=== PATIENT | male | born 1990 | race Caucasian/White ===

== ENCOUNTER 2023-01-31 14:48 | Emergency (ER) | payer MEDICARE, MEDICAID, SELFPAY ==
[2023-01-31] VITALS (9 sets, daily range): BP systolic 99–131; BP diastolic 54–70; PULSE 60–95; RESP 12–28; TEMP 36.8; O2SAT 95–98; BMI 29.0
--- NOTE | 2023-01-31 14:56 | DI.RAD.S_ITS ---
PROCEDURE: XR CHEST 1V INDICATIONS: weakness, hyperglycemia TECHNIQUE: One view of the chest was acquired. COMPARISON: None. FINDINGS: Surgical changes and devices: None. Lungs and pleura: Lungs are clear. No pleural effusions or pneumothorax. Mediastinum: Mediastinal contours appear normal. Heart size is normal. Bones and chest wall: No suspicious bony lesions. Overlying soft tissues appear unremarkable. IMPRESSION: No acute cardiopulmonary disease process. Dictated by: Jailene Michaud MD, PhD on 01/31/2023 at 15:39 Approved by: Jailene Michaud MD, PhD on 01/31/2023 at 15:40
--- NOTE | 2023-01-31 15:05 | ED_ITS ---
HPI - Seizure General Chief Complaint: Seizure Stated Complaint: Slurred speech, Seizures Time Seen by Provider: 01/31/23 14:55 History of Present Illness HPI Narrative: 32-year-old male nonsmoker with history of diabetes and seizures presents at the request of the clinic in [place] for evaluation of a change in his seizure habits as well as high blood sugars. He states that he has been having upwards of 3 seizures per day for the past few weeks which is more than normal for him. He denies any new seizure medications but does state that he occasionally misses what he is supposed to take. Additionally he has had blood sugars as high as the 600s for least the past few days and has been slurring his words. He has had some change in his diabetic regimen but is unsure exactly what the change was. He denies any headache or blurred vision. Denies chest pain or shortness of breath. He has nausea but denies any vomiting. Denies any abdominal pain, constipation or diarrhea Related Data Allergies Allergy/AdvReac Type Severity Reaction Status Date / Time lavender (Lavandula Allergy Unknown Verified 01/31/23 15:09 angustifolia) ALL LOTIONS Allergy Unknown Uncoded 11/06/17 12:34 Review of Systems Review of Systems Narrative: GENERAL: See HPI HEENT: Denies sinus pain, ear pain, sore throat, difficulty swallowing, dizziness. RESPIRATORY: Denies dyspnea, cough, wheezing, hemoptysis, sputum. CARDIOVASCULAR: Denies chest pain, palpitations, orthopnea, edema, GASTROINTESTINAL: See HPI : Denies dysuria, frequency, incontinence, hematuria, urinary retention. MUSCULOSKELETAL: denies weakness, joint pain, or bony pain SKIN: Denies rash, skin lesions, or other NEUROLOGIC: See HPI PSYCHIATRIC: No concerning psychosocial issues. 12 point review of systems is negative except for those stated above Patient History Social History Smoking Status: Current some day smoker Exam Narrative Exam Narrative: GENERAL: [32] year old patient appears stated age. Well-developed patient, in mild distress. GCS 15 HEAD: Atraumatic. Normocephalic. EYES: Pupils equal round and reactive. Extraocular motions intact. No scleral icterus. No injection or drainage. ENT: Nose without bleeding, purulent drainage. Throat without erythema, tonsillar hypertrophy or exudate. Airway patent. NECK: Trachea midline. Non tender CARDIOVASCULAR: Regular rate and rhythm without murmurs, gallops, or rubs. RESPIRATORY: Clear to auscultation. Breath sounds equal bilaterally. No wheezes, rales, or rhonchi. GASTROINTESTINAL: Abdomen soft, non-tender, nondistended. EXTREMITIES: No edema or joint tenderness. BACK: Nontender without deformity or crepitance. No flank tenderness. NEURO: AOx3. SKIN: No rash or erythema of visible areas Initial Vital Signs Initial Vital Signs: Vital Signs Pulse Rate 95 H 01/31/23 14:59 Respiratory Rate 18 01/31/23 14:59 Pulse Oximetry 95 01/31/23 14:59 Course Orders Ordered: ED Orders 01/31/23 14:55 VBG [Venous Blood Gas] Stat 01/31/23 14:56 Chest [XR chest 1V] Stat 01/31/23 15:16 Complete Blood Count AUTO DIFF Stat Comprehensive Metabolic Panel Stat Ketones (Beta-Hydroxybutyrate) Stat Magnesium Stat 01/31/23 15:40 CT head/brain wo con Stat Discontinued Medications Lactated Ringer's (Lactated Ringers) 1,000 mls @ 1,000 mls/hr IV BOLUS ONE Stop: 01/31/23 15:54 Last Infusion: 01/31/23 17:00 Dose: 0 mls/hr Documented By: Admin: 01/31/23 15:34 Dose: 1,000 mls/hr Documented By: ROMAN Ondansetron HCl (Ondansetron 4 Mg/2 Ml Inj) 4 mg IV NOW ONE Stop: 01/31/23 14:56 Last Admin: 01/31/23 15:34 Dose: 4 mg Documented By: ROMAN Vital Signs Vital signs: Vital Signs - 8 hr 01/31/23 15:00 01/31/23 14:59 01/31/23 15:00 Temperature 98.2 F Pulse Rate 92 H 95 H 91 H Respiratory Rate 12 18 23 Blood Pressure 121/68 Pulse Oximetry 96 95 96 Oxygen Delivery Method Room Air Room Air 01/31/23 15:01 01/31/23 15:01 01/31/23 15:30 Temperature Pulse Rate 91 H Respiratory Rate 23 Blood Pressure 117/70 121/69 Pulse Oximetry 96 Oxygen Delivery Method 01/31/23 15:30 01/31/23 16:00 01/31/23 16:00 Temperature Pulse Rate 80 75 Respiratory Rate 28 H 22 Blood Pressure 116/62 Pulse Oximetry 96 Oxygen Delivery Method Room Air 01/31/23 16:30 01/31/23 16:30 01/31/23 17:00 Temperature Pulse Rate 65 Respiratory Rate 19 Blood Pressure 99/54 L 103/56 L Pulse Oximetry 98 Oxygen Delivery Method Room Air 01/31/23 17:00 01/31/23 17:39 01/31/23 18:00 Temperature Pulse Rate 75 66 Respiratory Rate 15 27 H Blood Pressure 131/70 Pulse Oximetry 97 98 Oxygen Delivery Method Room Air Room Air 01/31/23 18:00 Temperature Pulse Rate 60 Respiratory Rate 19 Blood Pressure Pulse Oximetry 97 Oxygen Delivery Method MDM - Seizure Lab Data 01/31/23 15:16 01/31/23 15:16 Labs: Lab Results 01/31/23 01/31/23 01/31/23 Range/Units 15:16 15:16 15:16 WBC 11.7 H (4.5-11.0) X10^3/uL RBC 4.91 (4.5-5.9) X10^6/uL Hgb 14.9 (13.5-17.5) g/dL Hct 41.6 (41-53) % MCV 84.8 (80-100) fL MCH 30.4 (26-34) PG MCHC 35.8 (30-36) % RDW 13.2 (11.6-14.8) % Plt Count 257 (150-400) X10^3/uL Neut % (Auto) 63.1 (50-75) % Lymph % (Auto) 29.8 (25-40) % [place] % (Auto) 5.5 (3-14) % Eos % (Auto) 1.0 L (2-4) % Baso % (Auto) 0.6 (0-2) % Neut # (Auto) 7400 H (8606-9330) /uL Lymph # (Auto) 3500 (5267-4929) /uL [place] # (Auto) 600 (0-900) /uL Eos # (Auto) 100 (0-450) /uL Baso # (Auto) 100 (0-100) /uL Sodium 135 L (137-145) mmol/L Potassium 4.3 (3.4-5.1) mmol/L Chloride 102 (98-107) mmol/L Carbon Dioxide 17 L (22-32) mmol/L BUN 21 H (9-20) mg/dL Creatinine 0.95 (0.66-1.25) mg/dL Estimated GFR > 60 (>60) mL/min BUN/Creatinine Ratio 22.1 H (6-22) Glucose 322 H (70-100) mg/dL Calcium 9.0 (8.4-10.2) mg/dL Magnesium 2.1 (1.6-2.3) mg/dL Total Bilirubin 0.4 (0.2-1.3) mg/dL AST 24 (17-59) IU/L ALT 24 (<50) IU/L Alkaline Phosphatase 87 (38-126) U/L Total Protein 7.2 (6.3-8.2) g/dL Albumin 4.4 (3.5-5.0) g/dL Globulin 2.8 (1.7-4.1) g/dL Albumin/Globulin Ratio 1.6 (1.0-2.8) Ketones 0.16 (<0.27) mmol/L Urine Dip Bedside Urine Glucose 1000 mg/dl Bedside Urine Bilirubin - Negative Bedside Urine Ketone +/- 5 Urine Specific [place] 1.015 Bedside Urine Occult Blood - Negative Bedside Urine pH 6.0 Bedside Urine Protein - Negative Bedside Urine Urobilinogen - Negative Bedside Urine Nitrite - Negative Bedside Urine Leukocytes - Negative Esterase MDM Narrative Medical decision making narrative: [32] year old patient presents with some lightheadedness and bit of confusion with possible change in seizure history Multiple etiologies for patient's symptoms considered including, but not limited to: [Dehydration versus diabetic emergency versus intracranial abnormality versus other] Prior Charts reviewed in our EMR Primary Historian: patient Labs reviewed and interpreted by myself: Slight leukocytosis of 11.7, no true less shift, no signs of anemia, initial glucose 322, improved with POC after fluids. Slight acidosis on serum, no ketones, VBG demonstrates no acidosis. Imaging reviewed: Head CT unremarkable Patient's symptoms improved over duration of stay with above-stated therapies. Patient feels significant improvement after fluids, no longer slurring, feeling significant improvement and wants to go home Findings and discharge diagnosis discussed with patient/family followed by verbalization of understanding Return precautions discussed with patient/family whom verbalize understanding of diagnosis and plan Discharge Plan Departure Patient Disposition: Home Clinical Impression: Acute dehydration, Acute hyperglycemia Instructions: DI for Dehydration -- Adult Activity Restrictions/Additional Instructions: *You have been diagnosed with [dehydration and hyperglycemia. As we discussed there are no significant abnormalities in your evaluation, your head CTs unremarkable. I am thankfully he feels so much better after receiving IV fluids] *What to do: *Please continue to take your regular medications as directed. *Please follow up with your primary care provider in 2-3 days, call for an appointment. Let them know you were seen in the Emergency Department and that we ask that you be seen in follow up. We will electronically transmit a record of today's note if your PCP is in our system *If you do not have a primary care provider please contact the [facility] Resource line at [phone]. They will ask some questions about your medical history and help get you set up with a doctor in the community. *Return to Emergency Department if you should have any new, worsening or concerning symptoms, such as [fever greater than 101 F, shaking chills, worsening pain, persistent vomiting or other bothersome symptoms] Stand Alone Forms: Patient Portal/API
[2023-01-31 15:28] LABS: Add Manual Diff / Slide Review NO; Basophils Absolute Auto 100 /uL (0-100); Basophils Percent Auto 0.6 % (0-2); Eosinophils Absolute Auto 100 /uL (0-450); Hematocrit 41.6 % (41-53); Hemoglobin 14.9 g/dL (13.5-17.5); Lymphocytes Absolute Auto 3500 /uL (1100-4500); Lymphocytes Percent Auto 29.8 % (25-40); Mean Corpuscular HGB Conc 35.8 % (30-36); Mean Corpuscular Hemoglobin 30.4 PG (26-34); Mean Corpuscular Volume 84.8 fL (80-100); Monocytes Absolute Auto 600 /uL (0-900); Monocytes Percent Auto 5.5 % (3-14); Neutrophils Absolute Auto 7400 /uL (1500-7000); Neutrophils Percent Auto 63.1 % (50-75); Platelet Count 257 X10^3/uL (150-400); Red Blood Cell Count 4.91 X10^6/uL (4.5-5.9); Red Cell Distribution Width 13.2 % (11.6-14.8); White Blood Cell Count 11.7 X10^3/uL (4.5-11.0)
[2023-01-31] MEDS: ONDANSETRON 4 MG/2 ML INJ IV (15:34)
[2023-01-31] MEDS: LACTATED RINGERS 1,000 ML 1000 ML IV (15:34)
[2023-01-31 15:40] LABS: Alanine Aminotransferase 24 IU/L (<50); Albumin 4.4 g/dL (3.5-5.0); Albumin Globulin Ratio 1.6 (1.0-2.8); Alkaline Phosphatase 87 U/L (38-126); Aspartate Aminotransferase 24 IU/L (17-59); BUN Creatinine Ratio 22.1 (6-22); Bilirubin Total 0.4 mg/dL (0.2-1.3); Blood Urea Nitrogen 21 mg/dL (9-20); Carbon Dioxide 17 mmol/L (22-32); Chloride 102 mmol/L (98-107); Estimated Glomerular Filt Rate > 60 mL/min (>60); Globulin 2.8 g/dL (1.7-4.1); Glucose 322 mg/dL (70-100); HEMOLYSIS < 15 (0-50); Magnesium 2.1 mg/dL (1.6-2.3); Potassium 4.3 mmol/L (3.4-5.1); Sodium 135 mmol/L (137-145); Total Protein 7.2 g/dL (6.3-8.2)
--- NOTE | 2023-01-31 15:40 | DI.CT.S_ITS ---
PROCEDURE: CT HEAD/BRAIN WO CON INDICATIONS: slurring words, change in seizure pattern TECHNIQUE: Noncontrast 4.5 mm thick angled axial sections acquired from the foramen magnum to the vertex, with coronal and sagittal reformats. For radiation dose reduction, the following was used: automated exposure control, adjustment of mA and/or kV according to patient size. COMPARISON: [facility], MR, MR SEIZURE BRAIN W&WO CON, 10/19/2015, 11:36. [facility], MR, MR BRAIN WITHOUT CONTRAST, 12/09/2018, 13:29. [facility], CT, HEAD WITHOUT CONTRAST, 05/19/2015, 10:28. FINDINGS: Image quality: Excellent. CSF spaces: Basal cisterns are patent. No extra-axial fluid collections. Ventricles are normal in size and shape. Brain: No midline shift. No intracranial masses or hemorrhage. Miller-white matter interface is normal. Skull and face: Calvarium and visualized facial bones are intact, without suspicious lesions. Sinuses: Visualized sinuses and mastoids are clear. IMPRESSION: No acute intracranial disease process. Dictated by: Jailene Michaud MD, PhD on 01/31/2023 at 16:06 Approved by: Jailene Michaud MD, PhD on 01/31/2023 at 16:10
[2023-01-31 15:41] LABS: Ketones (Beta-Hydroxybutyrate) 0.16 mmol/L (<0.27)
== END 2023-01-31 18:13 | disposition home or self-care (01) ==
PROVIDERS: Emergency Provider Emergency Medicine
DX: E86.0 Dehydration (principal); E11.65 Type 2 diabetes mellitus with hyperglycemia; R56.9 Unspecified convulsions
CPT/HCPCS: 36415; 70450; 71045; 80053; 81003; 82009; 83735; 85025; 96361; 96374; 99284; J2405

== ENCOUNTER 2024-07-04 11:57 | Emergency (ER) | payer MEDICARE, OTHER, MEDICAID, SELFPAY ==
[2024-07-04] VITALS (8 sets, daily range): BP systolic 106–129; BP diastolic 68–85; PULSE 81–113; RESP 16–23; TEMP 36.6; O2SAT 94–97; BMI 16.2
--- NOTE | 2024-07-04 12:13 | EKG_ITS ---
[address] [address] [address] [address] Test Date: 2024-07-04 Pat Name: Arthur Murphy Department: Room: Gender: Male [employer] Supervisor: DREW : 1990 Requested By: Order Number: [id number] Reading MD: Joce Franklin MD Measurements Intervals [place] Rate: 104 P: 40 AL: 158 QRS: 41 QRSD: 82 T: 12 QT: 318 QTc: 418 Interpretive Statements Sinus tachycardia Electronically Signed On 07-05-2024 17:06:18 PST by Joce Franklin MD
--- NOTE | 2024-07-04 12:23 | ED_ITS ---
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 He presents with his sister notes that he was going to a this morning when he had a brief seizure. He describes this as significantly stressful for him. He states that he has been taking his antiepileptics and sugars been appropriate. He reports lower extremity neuropathy that is unchanged. Sister has a med list which includes omeprazole 20 mg daily duloxetine 30 mg daily, carbamazepine 200 mg b.i.d., metformin, ziprasidone with 80 and 20 mg doses Related Data Allergies Allergy/AdvReac Type Severity Reaction Status Date / Time lavender (Lavandula Allergy Unknown Verified 07/04/24 12:06 angustifolia) ALL LOTIONS Allergy Unknown Uncoded 11/06/17 12:34 Review of Systems Review of Systems Narrative: Pertinent positive and negative findings as per HPI Patient History Medical History (Updated 07/04/24 @ 15:03 by Kelly Santiago MD) Diabetes Hypertension Seizure disorder Traumatic brain injury Social History Smoking Status: Current some day smoker Smoking Status: Current some day smoker tobacco type: cigarettes and vaping alcohol intake frequency: 0-2 drinks per day Exam Initial Vital Signs Initial Vital Signs: Vital Signs Temperature 97.9 F 07/04/24 11:59 Pulse Rate 110 H 07/04/24 11:59 Respiratory Rate 23 07/04/24 11:59 Blood Pressure 128/77 07/04/24 11:59 Pulse Oximetry 97 07/04/24 11:59 Oxygen Delivery Method Room Air 07/04/24 11:59 General: Slightly slowed, moving all extremities, able to answer all questions, speaking in full sentences HEENT: Moist mucous membranes, normal sclera with reactive pupils, no damage to his tongue Respiratory: Lungs are clear to auscultation, no wheezing no rales no rhonchi. Full and symmetrical air movement Cardiac: Regular rate and rhythm no murmurs no bruits Abdomen: Soft, nontender, good bowel tones, no flank pain Skin: Warm and dry, no rashes Neurologic: Grossly neurologically intact with no obvious asymmetries or abnormalities, no hyperreflexia Extremities: No trauma, well perfused Psych: Cooperative, appropriate insight and affect Course Orders Ordered: ED Orders 07/04/24 12:15 Carbamazepine Tegretol Level Stat Complete Blood Count AUTO DIFF Stat Comprehensive Metabolic Panel Stat Lipase Stat Troponin & CK Cardiac Panel Stat 07/04/24 12:24 XR chest 1V Stat 07/04/24 13:09 EKG-12 Lead Stat Sodium Chloride (Normal Saline 0.9%) 1,000 mls @ 150 mls/hr IV CONT KB Last Admin: 07/04/24 12:36 Dose: 150 mls/hr Documented By: RB Discontinued Medications Aspirin (Aspirin 81 Mg Chew Tab) 324 mg PO NOW ONE Stop: 07/04/24 12:25 Last Admin: 07/04/24 12:36 Dose: 324 mg Documented By: RB Lorazepam (Lorazepam 2 Mg/Ml Inj) 1 mg IV NOW ONE Stop: 07/04/24 12:37 Last Admin: 07/04/24 12:40 Dose: 1 mg Documented By: RB Vital Signs Vital signs: Vital Signs - 8 hr 07/04/24 11:59 07/04/24 12:03 07/04/24 12:03 Temperature 97.9 F Pulse Rate 110 H 113 H Respiratory Rate 23 Blood Pressure 128/77 128/77 Pulse Oximetry 97 97 Oxygen Delivery Method Room Air 07/04/24 12:30 07/04/24 12:30 07/04/24 13:00 Temperature Pulse Rate 99 H Respiratory Rate 16 Blood Pressure 129/84 120/76 Pulse Oximetry 95 Oxygen Delivery Method 07/04/24 13:00 07/04/24 13:30 07/04/24 13:30 Temperature Pulse Rate 89 94 H Respiratory Rate 20 20 Blood Pressure 129/85 Pulse Oximetry 94 95 Oxygen Delivery Method 07/04/24 14:00 07/04/24 14:00 Temperature Pulse Rate 85 Respiratory Rate 21 Blood Pressure 127/79 Pulse Oximetry 94 Oxygen Delivery Method MDM - Chest Pain Lab Data 07/04/24 12:15 07/04/24 12:15 Labs: Lab Results 07/04/24 Range/Units 12:15 WBC 11.4 H (4.5-11.0) X10^3/uL RBC 5.44 (4.5-5.9) X10^6/uL Hgb 16.1 (13.5-17.5) g/dL Hct 46.2 (41-53) % MCV 85.1 (80-100) fL MCH 29.7 (26-34) PG MCHC 34.9 (30-36) % RDW 12.8 (11.6-14.8) % Plt Count 324 (150-400) X10^3/uL Neut % (Auto) 64.7 (50-75) % Lymph % (Auto) 29.0 (25-40) % [place] % (Auto) 4.7 (3-14) % Eos % (Auto) 1.2 L (2-4) % Baso % (Auto) 0.4 (0-2) % Neut # (Auto) 7400 H (8061-2780) /uL Lymph # (Auto) 3300 (1654-1007) /uL [place] # (Auto) 500 (0-900) /uL Eos # (Auto) 100 (0-450) /uL Baso # (Auto) 0 (0-100) /uL Sodium 136 L (137-145) mmol/L Potassium 4.2 (3.4-5.1) mmol/L Chloride 107 (98-107) mmol/L Carbon Dioxide 19 L (22-32) mmol/L BUN 18 (9-20) mg/dL Creatinine 1.11 (0.66-1.25) mg/dL Estimated GFR > 60 (>60) mL/min BUN/Creatinine Ratio 16.2 (6-22) Glucose 177 H (70-100) mg/dL Calcium 9.6 (8.4-10.2) mg/dL Total Bilirubin 0.6 (0.2-1.3) mg/dL AST 27 (17-59) IU/L ALT 22 (<50) IU/L Alkaline Phosphatase 80 (38-126) U/L Total Creatine Kinase 57 (55-170) U/L Troponin I < 0.012 (0.01-0.034) ng/mL Total Protein 7.9 (6.3-8.2) g/dL Albumin 4.7 (3.5-5.0) g/dL Globulin 3.2 (1.7-4.1) g/dL Albumin/Globulin Ratio 1.5 (1.0-2.8) Lipase 147 (23-300) U/L MDM Narrative Medical decision making narrative: CC: Seizure while attending a , chest pain Complicating co-morbidities: Diabetes, pseudo-seizure secondary to TBI, very sensitive to routine/scheduled changes and increased anxiety Data collected from: patient, sister Medical records reviewed: Sister provides Differential considered: Increased stress, pseudo-seizure, infection, coronary syndrome Exam documented above, pertinent findings include: Patient examined after approximately 20 2nd of seizure-like activity. He is alert somewhat slowed not complaining of pain, chest pain. He has not hyperreflexic, exam is otherwise benign Lab Test results independently reviewed as above. Pertinent findings: CBC is reassuring Chemistries are unremarkable, normal LFTs Troponin is undetectable Lipase is appropriate Independently reviewed EKG: EKG shows sinus tach at 1:04 a.m. without ischemia Imaging studies independently reviewed: Chest x-ray is unremarkable Treatments: Mg of IV Ativan after 2 episodes of 20 seconds of seizure-type activity Re-evaluations: Patient feels that he is back to his baseline and anxious for discharge Discussion: 33-year-old gentleman with TBI and psychogenic seizures that are worse with external stressors such as today, going out to a larger public gathering for a . No signs of infection, lab work is reassuring. He had 2 brief episodes of pseudo-seizure in the emergency department and was given a mg of Ativan which has been helpful in the past. No signs of DKA or obvious trauma. This time there is no indication for additional workup, advanced imaging or hospitalization and patient will be discharged Discharge Plan Departure Patient Disposition: Home Clinical Impression: Psychosocial stressors, Psychogenic nonepileptic seizure Activity Restrictions/Additional Instructions: Thank you for coming in today I think that you are absolutely correct, the increased stress caused your seizure. I did not find any evidence of infection, bleeding, electrolyte abnormalities, kidney or liver problems and no evidence of DKA or diabetes complications I would encourage you to continue all of your usual medications. It sounds like you do have some routines for re-grounding yourself and dealing with external stressors. If you find that you are getting worse or develop any new symptoms, please feel free to return to the emergency department for further evaluation. Stand Alone Forms: Patient Portal/API/Survey
--- NOTE | 2024-07-04 12:24 | DI.RAD.S_ITS ---
PROCEDURE: XR CHEST 1V INDICATIONS: chest pain TECHNIQUE: One view of the chest was acquired. COMPARISON: [facility], CR, XR CHEST 1V, 01/31/2023, 15:18. FINDINGS: Surgical changes and devices: None. Lungs and pleura: Lungs are clear. No pleural effusions or pneumothorax. Mediastinum: Mediastinal contours appear normal. Heart size is normal. Bones and chest wall: No suspicious bony lesions. Overlying soft tissues appear unremarkable. IMPRESSION: No acute cardiopulmonary abnormality is seen. Approved by: Kostas Ivory M.D. on 07/04/2024 at 12:09
[2024-07-04 12:32] LABS: Add Manual Diff / Slide Review NO; Basophils Absolute Auto 0 /uL (0-100); Basophils Percent Auto 0.4 % (0-2); Eosinophils Absolute Auto 100 /uL (0-450); Eosinophils Percent Auto 1.2 % (2-4); Hematocrit 46.2 % (41-53); Hemoglobin 16.1 g/dL (13.5-17.5); Lymphocytes Absolute Auto 3300 /uL (1100-4500); Mean Corpuscular HGB Conc 34.9 % (30-36); Mean Corpuscular Hemoglobin 29.7 PG (26-34); Mean Corpuscular Volume 85.1 fL (80-100); Monocytes Absolute Auto 500 /uL (0-900); Monocytes Percent Auto 4.7 % (3-14); Neutrophils Absolute Auto 7400 /uL (1500-7000); Neutrophils Percent Auto 64.7 % (50-75); Platelet Count 324 X10^3/uL (150-400); Red Blood Cell Count 5.44 X10^6/uL (4.5-5.9); Red Cell Distribution Width 12.8 % (11.6-14.8); White Blood Cell Count 11.4 X10^3/uL (4.5-11.0)
[2024-07-04] MEDS: ASPIRIN 81 MG CHEW TAB 324 MG PO (12:36)
[2024-07-04] MEDS: SODIUM CHLORIDE 0.9% 1,000 ML 150 ML IV (12:36)
--- NOTE | 2024-07-04 12:36 | PC.NURSE ---
This RN witnessed two seizures where patient entire body was shaking and patient was unresponsive to voice 1 started art 1229 and lasted 14 seconds. Patient had post seizure confusion. Sent for provider. Patient had additional episode at 1231 lasting 22 seconds. Provider arrived 1233 at patient bedside. New orders placed.
[2024-07-04 12:39] LABS: Alanine Aminotransferase 22 IU/L (<50); Albumin 4.7 g/dL (3.5-5.0); Albumin Globulin Ratio 1.5 (1.0-2.8); Alkaline Phosphatase 80 U/L (38-126); Aspartate Aminotransferase 27 IU/L (17-59); BUN Creatinine Ratio 16.2 (6-22); Bilirubin Total 0.6 mg/dL (0.2-1.3); Blood Urea Nitrogen 18 mg/dL (9-20); Calcium 9.6 mg/dL (8.4-10.2); Carbon Dioxide 19 mmol/L (22-32); Chloride 107 mmol/L (98-107); Creatine Kinase 57 U/L (55-170); Estimated Glomerular Filt Rate > 60 mL/min (>60); Globulin 3.2 g/dL (1.7-4.1); Glucose 177 mg/dL (70-100); HEMOLYSIS < 15 (0-50); Lipase 147 U/L (23-300); Potassium 4.2 mmol/L (3.4-5.1); Sodium 136 mmol/L (137-145); Total Protein 7.9 g/dL (6.3-8.2)
[2024-07-04] MEDS: LORazepam 2 MG/ML INJ 1 MG IV (12:40)
[2024-07-04 12:50] LABS: Troponin I < 0.012 ng/mL (0.01-0.034)
[2024-07-05 08:07] LABS: Carbamazepine Tegretol Level 10.8 ug/mL (4.0-12.0)
== END 2024-07-04 15:11 | disposition home or self-care (01) ==
PROVIDERS: Emergency Provider Emergency Medicine
DX: F44.5 Conversion disorder with seizures or convulsions (principal); Z65.8 Other specified problems related to psychosocial circumstances
CPT/HCPCS: 36415; 71045; 80053; 80156; 82550; 83690; 84484; 85025; 93005; 93010; 96361; 96374; 99284; J2060

== ENCOUNTER 2024-08-20 16:34 | Emergency (ER) | payer MEDICARE, MEDICAID, SELFPAY ==
[2024-08-20] VITALS (10 sets, daily range): BP systolic 121–136; BP diastolic 68–84; PULSE 76–99; RESP 12–20; TEMP 37; O2SAT 97–98; BMI 30.7
--- NOTE | 2024-08-20 17:02 | PC.NURSE ---
Pt reports that he has a history of passing out, he states that it has been happening more frequently. He reports that he has had some slurred speech after passing out. [facility] [address] was concerned about DKA, BG in triage was 224.
--- NOTE | 2024-08-20 17:11 | DI.RAD.S_ITS ---
PROCEDURE: XR CHEST 1V INDICATIONS: weakness TECHNIQUE: One view of the chest was acquired. COMPARISON: [facility], CR, XR CHEST 1V, 07/04/2024, 12:38. [facility], CR, XR CHEST 1V, 01/31/2023, 15:18. FINDINGS: Surgical changes and devices: None. Lungs and pleura: Lungs are clear. No pleural effusions or pneumothorax. Peribronchial cuffing. Mediastinum: Mediastinal contours appear normal. Heart size is normal. Bones and chest wall: No suspicious bony lesions. Overlying soft tissues appear unremarkable. IMPRESSION: Peribronchial cuffing, typically indicating infectious or inflammatory bronchitis. Dictated by: Kwame Harry M.D. on 08/20/2024 at 17:29 Approved by: Kwame Harry M.D. on 08/20/2024 at 17:30
--- NOTE | 2024-08-20 17:11 | DI.CT.S_ITS ---
PROCEDURE: CT HEAD/BRAIN WO CON INDICATIONS: syncope slurring words TECHNIQUE: Noncontrast 4.5 mm thick angled axial sections acquired from the foramen magnum to the vertex, with coronal and sagittal reformats. For radiation dose reduction, the following was used: automated exposure control, adjustment of mA and/or kV according to patient size. COMPARISON: [facility], CT, CT HEAD/BRAIN WO CON, 01/31/2023, 15:53. FINDINGS: Image quality: Diagnostic. CSF spaces: Basal cisterns are patent. No extra-axial fluid collections. Ventricles are normal in size and shape. Brain: No midline shift. No intracranial masses or hemorrhage. [place]-white matter interface is normal. Skull and face: Calvarium and visualized facial bones are intact, without suspicious lesions. Sinuses: Visualized sinuses and mastoids are clear. IMPRESSION: No acute intracranial pathology. Dictated by: Kwame Harry M.D. on 08/20/2024 at 18:45 Approved by: Kwame Harry M.D. on 08/20/2024 at 18:46
--- NOTE | 2024-08-20 17:12 | DI.CT.S_ITS ---
PROCEDURE: CT ANGIO HEAD AND NECK INDICATIONS: syncope / slurring words TECHNIQUE: After the administration of intravenous contrast, 1 mm thick sections acquired from the aortic arch through the [place] of [place]. 3-dimensional bfckxvc-ekxthdjtk-ntjhfaaxij (MIP) and/or volume rendering reformats were acquired of the central intracranial vasculature and neck separately. For radiation dose reduction, the following was used: automated exposure control, adjustment of mA and/or kV according to patient size. COMPARISON: None. FINDINGS: Image quality: Diagnostic. BRAIN: CSF spaces: Ventricles are normal in size and shape. Basal cisterns are patent. No extra-axial fluid collections. Brain: No significant abnormality of the brain can be seen. Skull and face: Calvarium and facial bones appear intact, without suspicious lesions. Orbits appear normal. Sinuses: Sinuses and mastoids are clear. HEAD CT ANGIOGRAPHY: Anterior circulation: Intracranial internal carotid arteries are normal in size and flow. The flow within the paired anterior cerebral arteries is normal and symmetric. The flow within the middle cerebral arteries is normal and symmetric. The anterior communicating artery is seen. No aneurysms are seen. Posterior circulation: Visualized portions of the vertebral arteries demonstrate normal caliber, and join to form a normal appearing basilar artery. Flow within the posterior cerebral arteries is normal and symmetric. No aneurysms are seen. NECK CT ANGIOGRAPHY: Carotid system: The great vessels demonstrate a conventional anatomy as they arise from the aortic arch. The origins of the common carotid arteries appear patent. The common carotid arteries demonstrate normal caliber and courses. The bifurcation regions are both widely patent. The internal carotid arteries demonstrate normal calibers and courses. Posterior circulation: The origins of the vertebral arteries both appear widely patent. The more superior extracranial portions of both vertebral arteries also demonstrate normal courses and calibers. They join to form a normal appearing basilar artery. Soft tissues: Visualized neck soft tissues demonstrate no suspicious abnormalities. Bones: No suspicious bony lesions. Visualized cervical spine appears normally aligned. IMPRESSION: No significant intracranial arterial abnormality is seen. No significant abnormality is seen within the arteries of the neck. Any quantitative measurements of stenosis were performed using NASCET criteria. Dictated by: Kwame Harry M.D. on 08/20/2024 at 18:46 Approved by: Kwame Harry M.D. on 08/20/2024 at 18:48
[2024-08-20] MEDS: SODIUM CHLORIDE 0.9% 1,000 ML 1000 ML IV (17:20)
[2024-08-20 17:37] LABS: Alanine Aminotransferase 24 IU/L (<50); Albumin 4.5 g/dL (3.5-5.0); Albumin Globulin Ratio 1.7 (1.0-2.8); Alkaline Phosphatase 66 U/L (38-126); Aspartate Aminotransferase 23 IU/L (17-59); BUN Creatinine Ratio 16.1 (6-22); Bilirubin Total 0.3 mg/dL (0.2-1.3); Blood Urea Nitrogen 14 mg/dL (9-20); Calcium 9.6 mg/dL (8.4-10.2); Carbon Dioxide 20 mmol/L (22-32); Chloride 105 mmol/L (98-107); Creatine Kinase 37 U/L (55-170); Estimated Glomerular Filt Rate > 60 mL/min (>60); Globulin 2.7 g/dL (1.7-4.1); Glucose 246 mg/dL (70-100); HEMOLYSIS < 15 (0-50); Lipase 100 U/L (23-300); Magnesium 1.9 mg/dL (1.6-2.3); Potassium 3.6 mmol/L (3.4-5.1); Sodium 140 mmol/L (137-145); Total Protein 7.2 g/dL (6.3-8.2)
[2024-08-20 17:48] LABS: Add Manual Diff / Slide Review NO; Basophils Absolute Auto 100 /uL (0-100); Basophils Percent Auto 0.6 % (0-2); Eosinophils Absolute Auto 200 /uL (0-450); Eosinophils Percent Auto 2.1 % (2-4); Hematocrit 43.7 % (41-53); Hemoglobin 15.4 g/dL (13.5-17.5); Lymphocytes Absolute Auto 2900 /uL (1100-4500); Lymphocytes Percent Auto 30.2 % (25-40); Mean Corpuscular HGB Conc 35.3 % (30-36); Mean Corpuscular Hemoglobin 29.8 PG (26-34); Mean Corpuscular Volume 84.4 fL (80-100); Monocytes Absolute Auto 500 /uL (0-900); Neutrophils Absolute Auto 6000 /uL (1500-7000); Neutrophils Percent Auto 62.1 % (50-75); Platelet Count 274 X10^3/uL (150-400); Red Blood Cell Count 5.18 X10^6/uL (4.5-5.9); Red Cell Distribution Width 12.9 % (11.6-14.8); Troponin I < 0.012 ng/mL (0.01-0.034); White Blood Cell Count 9.6 X10^3/uL (4.5-11.0)
--- NOTE | 2024-08-20 19:00 | CM.SWNOTE ---
ED SWE[employer]LE [employer]KER Note SWEET PICKLE MAKER receives consult due to patient's report of food insecurity in triage. Patient is 33 y/o male who presents to ED due to concern for syncopal episode. Patient has hx of DM II and Seizure disorder. SWEET PICKLE MAKER enters room to meet with patient, patient endorses he resides in an apartment in [place], patient denies any initial concern about losing housing but is worried. Patient endorses he is open to housing, food and basic needs resources. SWEET PICKLE MAKER provides this to patient. Plan: ED provider to evaluate patient, patient likely to d/c to home upon medical clearance, patient to f/u with resources provided and f/u outpatient providers. Chen Bob, RAMU
--- NOTE | 2024-08-20 19:39 | ED_ITS ---
HPI - General Adult General Chief complaint: Diabetic Problem Stated complaint: Possible DKA, sent from [place] walk in Time Seen by Provider: 08/20/24 17:09 Source: patient and family Mode of arrival: Ambulatory Limitations: no limitations History of Present Illness HPI narrative: Patient was a 33-year-old male. Has a history diabetes. Is on insulin. Also has a history of a TBI. Also has a history of ?mental health issues? per his report. Is on lamotrigine. Has a history of pseudoseizures. He states that his psychiatrist started him on lamotrigine. They increased it from 100 mg to 200 mg and he started to have symptoms that were very similar to what brought him in today which include passing out and slurring his words and generally not feeling very well. He went to go see an outside emergency department and they lowered his lamotrigine down to 150 mg and then was told to increase it after a short period of time back to 200 mg. Since he was increased it back to 200 mg his symptoms have returned. Earlier today he went to a walk-in clinic and they were concerned about his elevated blood sugars and DKA that they advised he come to the emergency department for evaluation. He would labs and CT scans ordered prior to my evaluation. Here in the ER he was alert and oriented. He states he was generally does not feel very well. Denies chest pain, shortness of breath. Related Data Allergies Allergy/AdvReac Type Severity Reaction Status Date / Time lavender (Lavandula Allergy Unknown Verified 07/04/24 12:06 angustifolia) ALL LOTIONS Allergy Unknown Uncoded 11/06/17 12:34 Review of Systems Review of Systems ROS Unobtainable: All systems reviewed & are unremarkable except as noted in HPI and below Patient History Medical History Diabetes Hypertension Seizure disorder Traumatic brain injury Social History Smoking Status: Current some day smoker Smoking Status: Current some day smoker tobacco type: cigarettes and vaping alcohol intake frequency: 0-2 drinks per day Exam Initial Vital Signs Initial Vital Signs: Vital Signs Temperature 98.6 F 08/20/24 16:38 Pulse Rate 99 H 08/20/24 16:38 Respiratory Rate 20 08/20/24 16:38 Blood Pressure 121/82 08/20/24 16:38 Pulse Oximetry 98 08/20/24 16:38 Oxygen Delivery Method Room Air 08/20/24 16:38 Const General: cooperative, comfortable and No ill appearing HENMT Head: normal to inspection and normocephalic Resp Effort & Inspection: normal respiratory effort Auscultation: clear to auscultation bilaterally Cardio Rate: regular rate Skin General: no rashes or lesions noted Neuro General: patient alert, patient awake, patient oriented x3 and moves all extremities Extrem General: capillary refill normal Course Orders Ordered: ED Orders 08/20/24 16:45 Consult to [facility] [place] - Recruitment Officer Stat 08/20/24 17:09 VBG [Venous Blood Gas] STAT 08/20/24 17:11 CT head/brain wo con Stat CXR [XR chest 1V] Stat EKG-12 Lead Stat 08/20/24 17:12 CT angio head and neck Stat 08/20/24 17:15 CBC Auto Diff [Complete Blood Count AUTO DIFF] Stat CMP [Comprehensive Metabolic Panel] Stat Lactate (Lactic Acid) Stat Lipase Stat MAG [Magnesium] Stat Troponin & CK Cardiac Panel Stat Discontinued Medications Sodium Chloride (Normal Saline 0.9%) 1,000 mls @ 1,000 mls/hr IV BOLUS ONE Stop: 08/20/24 18:10 Last Infusion: 08/20/24 18:45 Dose: Infused Documented By: Admin: 08/20/24 17:20 Dose: 1,000 mls/hr Documented By: SUMAN Vital Signs Vital signs: Vital Signs - 8 hr 08/20/24 16:38 08/20/24 16:49 08/20/24 16:49 Temperature 98.6 F Pulse Rate 99 H 87 Respiratory Rate 20 Blood Pressure 121/82 136/84 Pulse Oximetry 98 98 Oxygen Delivery Method Room Air 08/20/24 17:00 08/20/24 17:00 08/20/24 17:30 Temperature Pulse Rate 85 90 Respiratory Rate Blood Pressure 129/78 Pulse Oximetry 97 98 Oxygen Delivery Method 08/20/24 17:30 08/20/24 17:35 08/20/24 18:00 Temperature Pulse Rate 76 Respiratory Rate Blood Pressure 128/79 124/68 Pulse Oximetry 97 Oxygen Delivery Method 08/20/24 18:27 08/20/24 18:30 08/20/24 19:00 Temperature Pulse Rate 82 81 78 Respiratory Rate Blood Pressure Pulse Oximetry 98 97 97 Oxygen Delivery Method 08/20/24 19:30 Temperature Pulse Rate 77 Respiratory Rate 12 Blood Pressure Pulse Oximetry 97 Oxygen Delivery Method Medical Decision Making Lab Data Lab results reviewed: Yes I reviewed the patient's lab results. 08/20/24 17:15 08/20/24 17:15 Labs: Lab Results 08/20/24 Range/Units 17:15 WBC 9.6 (4.5-11.0) X10^3/uL RBC 5.18 (4.5-5.9) X10^6/uL Hgb 15.4 (13.5-17.5) g/dL Hct 43.7 (41-53) % MCV 84.4 (80-100) fL MCH 29.8 (26-34) PG MCHC 35.3 (30-36) % RDW 12.9 (11.6-14.8) % Plt Count 274 (150-400) X10^3/uL Neut % (Auto) 62.1 (50-75) % Lymph % (Auto) 30.2 (25-40) % [place] % (Auto) 5.0 (3-14) % Eos % (Auto) 2.1 (2-4) % Baso % (Auto) 0.6 (0-2) % Neut # (Auto) 6000 (2114-0087) /uL Lymph # (Auto) 2900 (0016-5471) /uL [place] # (Auto) 500 (0-900) /uL Eos # (Auto) 200 (0-450) /uL Baso # (Auto) 100 (0-100) /uL Sodium 140 (137-145) mmol/L Potassium 3.6 (3.4-5.1) mmol/L Chloride 105 (98-107) mmol/L Carbon Dioxide 20 L (22-32) mmol/L BUN 14 (9-20) mg/dL Creatinine 0.87 (0.66-1.25) mg/dL Estimated GFR > 60 (>60) mL/min BUN/Creatinine Ratio 16.1 (6-22) Glucose 246 H (70-100) mg/dL Lactate 2.0 (0.7-2.1) mmol/L Calcium 9.6 (8.4-10.2) mg/dL Magnesium 1.9 (1.6-2.3) mg/dL Total Bilirubin 0.3 (0.2-1.3) mg/dL AST 23 (17-59) IU/L ALT 24 (<50) IU/L Alkaline Phosphatase 66 (38-126) U/L Total Creatine Kinase 37 L (55-170) U/L Troponin I < 0.012 (0.01-0.034) ng/mL Total Protein 7.2 (6.3-8.2) g/dL Albumin 4.5 (3.5-5.0) g/dL Globulin 2.7 (1.7-4.1) g/dL Albumin/Globulin Ratio 1.7 (1.0-2.8) Lipase 100 (23-300) U/L Point of Care Testing Glucose POC 224 Point of care testing: Point of Care Testing Glucose POC 224 Imaging Data Chest x-ray: Radiologist's Impression: PROCEDURE: XR CHEST 1V INDICATIONS: weakness TECHNIQUE: One view of the chest was acquired. COMPARISON: [facility], CR, XR CHEST 1V, 07/04/2024, 12:38. [facility], CR, XR CHEST 1V, 01/31/2023, 15:18. FINDINGS: Surgical changes and devices: None. Lungs and pleura: Lungs are clear. No pleural effusions or pneumothorax. Peribronchial cuffing. Mediastinum: Mediastinal contours appear normal. Heart size is normal. Bones and chest wall: No suspicious bony lesions. Overlying soft tissues appear unremarkable. IMPRESSION: Peribronchial cuffing, typically indicating infectious or inflammatory bronchitis. CT scan - head: Radiologist's Impression: PROCEDURE: CT HEAD/BRAIN WO CON INDICATIONS: syncope slurring words TECHNIQUE: Noncontrast 4.5 mm thick angled axial sections acquired from the foramen magnum to the vertex, with coronal and sagittal reformats. For radiation dose reduction, the following was used: automated exposure control, adjustment of mA and/or kV according to patient size. COMPARISON: [facility], CT, CT HEAD/BRAIN WO CON, 01/31/2023, 15:53. FINDINGS: Image quality: Diagnostic. CSF spaces: Basal cisterns are patent. No extra-axial fluid collections. Ventricles are normal in size and shape. Brain: No midline shift. No intracranial masses or hemorrhage. Miller-white matter interface is normal. Skull and face: Calvarium and visualized facial bones are intact, without suspicious lesions. Sinuses: Visualized sinuses and mastoids are clear. IMPRESSION: No acute intracranial pathology. CTA - brain/neck: Radiologist's Impression: PROCEDURE: CT ANGIO HEAD AND NECK INDICATIONS: syncope / slurring words TECHNIQUE: After the administration of intravenous contrast, 1 mm thick sections acquired from the aortic arch through the [place] of [place]. 3-dimensional dowcbge-xpplmqmaz-eczgjvtioa (MIP) and/or volume rendering reformats were acquired of the central intracranial vasculature and neck separately. For radiation dose reduction, the following was used: automated exposure control, adjustment of mA and/or kV according to patient size. COMPARISON: None. FINDINGS: Image quality: Diagnostic. BRAIN: CSF spaces: Ventricles are normal in size and shape. Basal cisterns are patent. No extra-axial fluid collections. Brain: No significant abnormality of the brain can be seen. Skull and face: Calvarium and facial bones appear intact, without suspicious lesions. Orbits appear normal. Sinuses: Sinuses and mastoids are clear. HEAD CT ANGIOGRAPHY: Anterior circulation: Intracranial internal carotid arteries are normal in size and flow. The flow within the paired anterior cerebral arteries is normal and symmetric. The flow within the middle cerebral arteries is normal and symmetric. The anterior communicating artery is seen. No aneurysms are seen. Posterior circulation: Visualized portions of the vertebral arteries demonstrate normal caliber, and join to form a normal appearing basilar artery. Flow within the posterior cerebral arteries is normal and symmetric. No aneurysms are seen. NECK CT ANGIOGRAPHY: Carotid system: The great vessels demonstrate a conventional anatomy as they arise from the aortic arch. The origins of the common carotid arteries appear patent. The common carotid arteries demonstrate normal caliber and courses. The bifurcation regions are both widely patent. The internal carotid arteries demonstrate normal calibers and courses. Posterior circulation: The origins of the vertebral arteries both appear widely patent. The more superior extracranial portions of both vertebral arteries also demonstrate normal courses and calibers. They join to form a normal appearing basilar artery. Soft tissues: Visualized neck soft tissues demonstrate no suspicious abnormalities. Bones: No suspicious bony lesions. Visualized cervical spine appears normally aligned. IMPRESSION: No significant intracranial arterial abnormality is seen. No significant abnormality is seen within the arteries of the neck. Any quantitative measurements of stenosis were performed using NASCET criteria. MDM Narrative Medical decision making narrative: Workup here in the emergency department is unremarkable. He was not in DKA. CT scans unremarkable. It appears that when his lamotrigine is increased to its current dose he starts to have the symptoms that he presents with today. He was not feel that this medicine is actually working for him. He was follow up with his psychiatrist in proximally 2 weeks. The plan will be to decrease him back down to 150 mg where he states he was able to tolerate this dose without the side effects. I recommended that he did not stop this medication. Advised that he talk with his primary psychiatrist about potentially trying another medication as he seems to not be tolerating this very well. We will not make any changes to his diabetes medicines based on his workup here today. He was given return precautions. He expressed understanding and agreement with the plan. Discharge Plan Departure Patient Disposition: Home Clinical Impression: Hyperglycemia Instructions: DI for Hyperglycemia -- Adult Activity Restrictions/Additional Instructions: I do recommend that you decrease your lamotrigine to 150 mg. Contact your primary care doctor for a follow-up. Keep your scheduled appointment with your psychiatrist. Return to the emergency department for new or worsening symptoms. Stand Alone Forms: Patient Portal/API/Survey
== END 2024-08-20 19:51 | disposition home or self-care (01) ==
PROVIDERS: Student in an Organized Health Care Education/Training Program; Emergency Provider Emergency Medicine
DX: E11.65 Type 2 diabetes mellitus with hyperglycemia (principal); I10 Essential (primary) hypertension; Z79.4 Long term (current) use of insulin; G40.909 Epilepsy, unspecified, not intractable, without status epilepticus; R11.0 Nausea; R19.7 Diarrhea, unspecified; F17.290 Nicotine dependence, other tobacco product, uncomplicated; F17.210 Nicotine dependence, cigarettes, uncomplicated; Z86.39 Personal history of other endocrine, nutritional and metabolic disease
CPT/HCPCS: 36415; 70450; 70496; 70498; 71045; 80053; 82550; 82962; 83605; 83690; 83735; 84484; 85025; 96360; 99284; Q9967